=== PATIENT | male | born 1965 | race Caucasian/White ===

== ENCOUNTER 2020-07-29 17:01 | Outpatient (CLI) | payer SELFPAY ==
[2020-07-29 19:52] LABS: #Basophils 0.1 10x3/uL (0.0-0.2); #Eosinphils 0.2 10x3/uL (0.0-0.5); #Neutrophils 9.2 10x3/uL (1.5-8.4); %Basophils 0.8 % (0.0-2.0); %Eosinophils 1.7 % (0.0-6.0); %Lymphocytes 20.3 % (18.0-47.0); %Monocytes 7.6 % (0.0-10.0); %Neutrophils 69.2 % (40.0-75.0); Hemoglobin 15.2 g/dL (13.5-17.5); Mean Corpuscular Hemoglobin 29.2 pg (27.0-33.0); Mean Corpuscular Volume 88.3 fl (81.2-95.1); Mean Platelet Volume 10.9 fl (7.4-10.4); Platelet Count 370 10x3/uL (150-450); RBC Distribution Width 12.2 % (11.5-14.5); Red Blood Cell (RBC) Count 5.21 10x6/uL (4.32-5.72); White Blood Cell (WBC) Count 13.2 10x3/uL (3.5-10.5)
[2020-07-30 11:14] LABS: SARS-CoV-2 PCR by NAA Not Detected (NotDetected)
== END 2020-07-29 17:02 | disposition home or self-care (01) ==
LOC: LABBT 17:01
PROVIDERS: ATTEND Surgery
DX: Z01.818 Encounter for other preprocedural examination (principal); K40.90 Unilateral inguinal hernia, without obstruction or gangrene, not specified as recurrent; Z20.822 Contact with and (suspected) exposure to COVID-19
CPT/HCPCS: 85025; 93005; 93010; U0003; U0005

== ENCOUNTER 2020-08-01 06:27 | Day surgery (SDC) | payer OTHER ==
[2020-08-01] MEDS ORDERED: Lidocaine 1% w/Epinephrine 1:100K 20 ML VIAL ONE (08:35)
[2020-08-01] MEDS ORDERED: Bupivacaine 0.25% HCL 30 ML VIAL ONE (08:35)
[2020-08-01] MEDS ORDERED: Famotidine/PF 20 mg/2ml Vial ONE (08:49)
[2020-08-01] MEDS ORDERED: Fentanyl 100 MCG/2 ML VIAL ONE (08:49)
[2020-08-01] MEDS ORDERED: PROPOFOL 200 MG/20 ML VIAL ONE (08:54)
[2020-08-01] MEDS ORDERED: Lidocaine 1% PF 5 ML VIAL ONE (08:54)
[2020-08-01] MEDS ORDERED: Dexamethasone 20 MG/5 ML VIAL ONE (08:54)
[2020-08-01] MEDS ORDERED: Metoclopramide HCl 10 MG/2 ML VIAL ONE (08:54)
[2020-08-01] MEDS ORDERED: HYDROcodone/Acetaminophen 5/325 mg Tablet ONE (10:58)
== END 2020-08-01 12:30 | disposition home or self-care (01) ==
LOC: SDC 06:27
PROVIDERS: ATTEND Surgery
PROC: 0YU60JZ Supplement Left Inguinal Region with Synthetic Substitute, Open Approach (ICD-10-PCS; principal; 2020-08-01)
DX: K40.90 Unilateral inguinal hernia, without obstruction or gangrene, not specified as recurrent (principal); E78.5 Hyperlipidemia, unspecified; F17.290 Nicotine dependence, other tobacco product, uncomplicated; Z79.82 Long term (current) use of aspirin; Z79.899 Other long term (current) drug therapy
CPT/HCPCS: C1781; J0690; J3010; S0020; S0028